=== PATIENT | male | born 1965 | race Caucasian/White ===

== ENCOUNTER 2017-03-20 11:56 | Emergency (ER) | payer SELFPAY ==
[2010-02-15 23:48] VITALS: BMI 39.7
[2017-03-20 12:41] LABS: BASOPHILS 0.3 % (0-2); EOSINOPHILS 2.6 % (0-7); HEMATOCRIT 45.4 % (42.0-54.0); HEMOGLOBIN 16.2 g/dL (13.5-17.5); IMMATURE GRANULOCYTES 0.4 % (0-5); LYMPHOCYTES 24.3 % (15-50); MCH 30.6 pg (26.0-34.0); MCHC 35.7 g/dL (31.0-37.0); MCV 85.7 fL (80.0-100.0); MEAN PLATELET VOLUME 10.9 fL (7.4-10.4); MONOCYTES 8.2 % (2-11); NEUTROPHILS 64.2 % (40-80); PLATELET COUNT 198 10x3/uL (130-400); WBC 7.3 10x3/uL (4.8-10.8)
[2017-03-20 13:02] LABS: ALBUMIN 3.8 g/dL (3.4-5.0); ALKALINE PHOSPHATASE 82 U/L (46-116); ALT (SGPT) 62 U/L (10-68); BILIRUBIN - TOTAL 0.66 mg/dL (0.2-1.3); CALC OSMOLALITY 270 mosm/kg (275-300); CALCIUM 8.6 mg/dL (8.5-10.1); CARBON DIOXIDE 27.5 mmol/L (21.0-32.0); CHLORIDE - SERUM 101 mmol/L (98-107); CREATININE - SERUM 0.8 mg/dL (0.6-1.3); GLUCOSE 82 mg/dL (74-106); POTASSIUM - SERUM 3.6 mmol/L (3.5-5.1); PROTEIN - SERUM 7.8 g/dL (6.4-8.2); SODIUM 137 mmol/L (136-145); UREA NITROGEN 7 mg/dL (7-18); eGFR NON AFRICAN AMERICAN > 90 mL/min (90-120)
== END 2017-03-20 14:05 | disposition home or self-care (01) ==
LOC: D.ER 11:56
PROVIDERS: Emergency Medicine
DX: R42 Dizziness and giddiness (principal); I10 Essential (primary) hypertension; R11.0 Nausea; F17.200 Nicotine dependence, unspecified, uncomplicated; F12.90 Cannabis use, unspecified, uncomplicated; I45.10 Unspecified right bundle-branch block

== ENCOUNTER 2019-02-08 11:54 | Emergency (ER) | payer OTHER ==
[~2019-02-08] VITALS: Ht 182.9 cm; Wt 136.4 kg
[2019-02-08 12:09] VITALS: Ht 182.9 cm; Wt 136.4 kg
[2019-02-08] MEDS ORDERED: LISINOPRIL40 MG PO (12:10)
[2019-02-08 12:33] LABS: BASOPHILS 0.4 % (0-2); EOSINOPHILS 0.9 % (0-7); HEMATOCRIT 43.7 % (42.0-54.0); HEMOGLOBIN 15.7 g/dL (13.5-17.5); IMMATURE GRANULOCYTES 0.3 % (0-5); LYMPHOCYTES 16.8 % (15-50); MCHC 35.9 g/dL (31.0-37.0); MCV 83.6 fL (80.0-100.0); MONOCYTES 5.5 % (2-11); NEUTROPHILS 76.1 % (40-80); PLATELET COUNT 187 10x3/uL (130-400); RBC 5.23 10x6/uL (4.20-6.10); RDW 11.9 % (11.5-14.5); WBC 7.9 10x3/uL (4.8-10.8)
[2019-02-08 12:48] LABS: ALKALINE PHOSPHATASE 76 U/L (46-116); ALT (SGPT) 31 U/L (10-68); BILIRUBIN - TOTAL 0.65 mg/dL (0.2-1.3); CALC OSMOLALITY 267 mosm/kg (275-300); CHLORIDE - SERUM 99 mmol/L (98-107); CREATININE - SERUM 0.9 mg/dL (0.6-1.3); GLUCOSE 95 mg/dL (74-106); PROTEIN - SERUM 7.9 g/dL (6.4-8.2); SODIUM 135 mmol/L (136-145); UREA NITROGEN 8 mg/dL (7-18); eGFR NON AFRICAN AMERICAN > 90 mL/min (90-120)
[2019-02-08 13:14] LABS: CKMB 0.5 U/L (0.0-3.6); CREATINE KINASE 146 UL (21-232)
[2019-02-08 13:19] LABS: TROPONIN-I < 0.017 ng/mL (0.000-0.060)
[2019-02-08 16:48] VITALS: BP 190/89
== END 2019-02-08 16:49 | disposition home or self-care (01) ==
LOC: D.ER 11:54
PROVIDERS: Family Medicine
DX: I10 Essential (primary) hypertension (principal)